=== PATIENT | male | born 2000 | race Two or more races ===

== ENCOUNTER 2021-06-15 14:14 | Emergency (ER) | payer OTHER ==
[~2021-06-15] VITALS: Ht 175.3 cm; Wt 79.4 kg
[2021-06-15] MEDS ORDERED: MUCINEX DM ER1 EAC1 PO (15:55)
[2021-06-15] MEDS ORDERED: SYMBICORT 16010.2 GM IH (15:55)
[2021-06-15] MEDS ORDERED: TESSALON PERLE100 M1 PO (15:55)
[2021-06-15] MEDS ORDERED: OSEL75CA PO (15:55)
[2021-06-15] MEDS ORDERED: PROMETH-CODEIN 65 ML PO (15:55)
== END 2021-06-15 17:26 | disposition home or self-care (01) ==
LOC: ER 14:14
DX: J10.1 Influenza due to other identified influenza virus with other respiratory manifestations (principal); R05.9 Cough, unspecified; Z03.818 Encounter for observation for suspected exposure to other biological agents ruled out